=== PATIENT | female | born 1965 | race Caucasian/White ===

== ENCOUNTER 2017-02-04 11:19 | Emergency (ER) | payer MEDICARE, MEDICAID ==
[2017-02-04 11:38] VITALS: BP 118/77
--- NOTE | 2017-02-04 11:52 | EDM.PDOC ---
[id number] Complaint: [id number] THROWIN UP HEADACHE TICK BITE 1 MONTH A Time Seen by Provider: 02/04/17 11:40 Source of Information: Reports: Patient, Family, RN, RN Notes Reviewed History Limitations: Reports: No Limitations - History of Present Illness INITIAL COMMENTS - FREE TEXT/NARRATIVE: C/O tick bite to Rt low back 1 month ago. Yesterday had onset of fever w/N/V and diarrhea. Pt is concerned about Lyme disease. Onset Date: 02/03/17 Location: Reports: Abdomen, Back Quality: Reports: Other (cramping in generalized abdomen) Severity: Mild Improves with: Reports: None Worsens with: Reports: Eating Associated Symptoms: Reports: No Other Symptoms Knee Pain Score (Numeric/FACES): 7 - Related Data Allergies Allergy/AdvReac Type Severity Reaction Status Date / Time No Known Allergies Allergy Verified 02/04/17 11:33 Home Meds: Home Meds Acetaminophen/oxyCODONE [Percocet 325-5 MG] 1 tab PO Q4H 08/17/16 [History] Omeprazole 20 mg PO BIDAC 08/17/16 [History] Sertraline [Zoloft] 25 mg PO DAILY 08/17/16 [History] Varenicline Tartrate [Chantix] 1 each PO BID 08/17/16 [History] Past Medical History HEENT History: Reports: Impaired Vision Genitourinary History: Reports: Renal Calculus Other Musculoskeletal History: "needs knee surgery" Neurological History: Reports: Other (See Below) Other Neuro History: brain tumor Psychiatric History: Reports: Depression Endocrine/Metabolic History: Reports: Obesity/BMI 30+ - Past Surgical History HEENT Surgical History: Reports: Naso-Sinus Surgery Social & Family History - Family History Family Medical History: Noncontributory - Tobacco Use Smoking Status *Q: Current Every Day Smoker Years of Tobacco use: 30 Packs/Tins Daily: 1 Used Tobacco, but Quit: Yes Month Tobacco Last Used: jul 2016 Second Hand Smoke Exposure: Yes - Caffeine Use Caffeine Use: Reports: Coffee, Soda - Recreational Drug Use Recreational Drug Use: No - Living Situation & Occupation Living situation: Reports: with Family Occupation: Unemployed ED ROS GENERAL - Review of Systems Review Of Systems: ROS reveals no pertinent complaints other than HPI. ED EXAM, GI/ABD - Physical Exam Exam: See Below Exam Limited By: No Limitations General Appearance: Alert, WD/WN, No Apparent Distress, Obese Eyes: Bilateral: Normal Appearance Ears: Normal External Exam, Hearing Grossly Normal Nose: Normal Inspection, Normal Mucosa, No Blood Throat/Mouth: Normal Inspection, Normal Lips, Normal Teeth, Normal Gums, Normal Oropharynx, Normal Voice, No Airway Compromise Head: Atraumatic, Normocephalic Neck: Normal Inspection, Supple, Non-Tender, Full Range of Motion. No: Lymphadenopathy (L), Lymphadenopathy (R) Respiratory/Chest: No Respiratory Distress, Lungs Clear, Normal Breath Sounds, No Accessory Muscle Use, Chest Non-Tender Cardiovascular: Regular Rate, Rhythm, Tachycardia GI/Abdominal: Normal Bowel Sounds, Soft, No Distention, Tenderness (mild generalized tenderness). No: Guarding, Rebound, Rigidity (Female) Exam: Deferred Rectal (Female) Exam: Deferred Back Exam: Normal Inspection, Full Range of Motion. No: CVA Tenderness (L), CVA Tenderness (R) Extremities: Normal Inspection, Normal Range of Motion, Non-Tender, Normal Capillary Refill, No Pedal Edema Neurological: Alert, Oriented, CN II-XII Intact, Normal Cognition, Normal Gait, No Motor/Sensory Deficits Psychiatric: Normal Affect, Normal Mood Skin Exam: Warm, Dry, Intact, Rash (3cm diameter area of erythema with cental 3mm scab) Course - Vital Signs Last Recorded V/S: Last Vital Signs Temp 35.8 C 02/04/17 11:35 Pulse 100 02/04/17 11:35 Resp 20 02/04/17 11:35 BP 118/77 02/04/17 11:35 Pulse Ox 96 02/04/17 11:35 - Orders/Labs/Meds Orders: Active Orders 24 hr Category Date Time Status Peripheral IV Care [RC] . DIRECTED Care 02/04/17 11:53 Active LYME/B.BURGDORFERI IGG/IGM [REF] Stat Lab 02/04/17 12:08 Received Peripheral IV Insertion Adult [OM.PC] Stat Oth 02/04/17 11:52 Ordered Labs: Laboratory Tests 02/04/17 02/04/17 02/04/17 Range/Units 12:04 12:08 12:08 WBC 12.9 H (5.0-10.0) 10^3/uL RBC 5.83 H (4.2-5.4) 10^6/uL Hgb 16.4 H (12.0-16.0) g/dL Hct 49.5 H (37.0-47.0) % MCV 84.9 (80-100) fL MCH 28.1 (27.0-34.0) pg MCHC 33.1 (33.0-35.0) g/dL Plt Count 222 (150-450) 10^3/uL Neut % (Auto) 85.8 H (42.2-75.2) % Lymph % (Auto) 7.6 L (20.5-50.1) % [place] % (Auto) 6.4 (2-8) % Eos % (Auto) 0.2 L (1.0-3.0) % Baso % (Auto) 0.0 (0.0-1.0) % Sodium 137 (135-145) mmol/L Potassium 3.6 (3.6-5.0) mmol/L Chloride 105 (101-111) mmol/L Carbon Dioxide 19.0 L (21.0-31.0) mmol/L Anion Gap 16.6 BUN 24 H (7-18) mg/dL Creatinine 1.0 (0.6-1.3) mg/dL Est Cr Clr Drug Dosing 61.23 mL/min Estimated GFR (MDRD) 59 BUN/Creatinine Ratio 24.00 Glucose 127 H (74-105) mg/dL Calcium 8.8 (8.4-10.2) mg/dl Total Bilirubin 0.8 (0.2-1.0) mg/dL AST 16 (10-42) IU/L ALT 18 (10-60) IU/L Alkaline Phosphatase 56 (42-121) IU/L Total Protein 7.5 (6.7-8.2) g/dl Albumin 4.1 (3.2-5.5) g/dl Globulin 3.4 Albumin/Globulin Ratio 1.21 Amylase 35 (28-100) U/L Lipase 38 (22-51) U/L Urine Color Janae (YELLOW) Urine Appearance Slightly cloudy (CLEAR) Urine pH 6.0 (5.0-9.0) Ur Specific [place] 1.020 (1.005-1.030) Urine Protein 100 H (NEGATIVE) Urine Glucose (UA) Negative (NEGATIVE) Urine Ketones Negative (NEGATIVE) Urine Occult Blood Trace-intact H (NEGATIVE) Urine Nitrite Negative (NEGATIVE) Urine Bilirubin Small H (NEGATIVE) Urine Urobilinogen 0.2 (0.2-1.0) mg/dL Ur Leukocyte Esterase Small H (NEGATIVE) Urine RBC 5-10 H /HPF Urine WBC 20-30 H (0-5/HPF) /HPF Ur Epithelial Cells Moderate H /HPF Urine Bacteria Moderate H (0-FEW/HPF) /HPF Urine Mucus Few H /LPF Meds: Medications Discontinued Medications Generic Name Dose Route Start Last Admin Trade Name Freq PRN Reason Stop Dose Admin Sodium Chloride 1,000 mls @ 999 mls/hr 02/04/17 11:53 02/04/17 12:03 Normal Saline IV 02/04/17 12:53 999 mls/hr .BOLUS ONE Administration Ceftriaxone Sodium 1 gm/ 50 mls @ 100 mls/hr 02/04/17 13:31 02/04/17 13:39 Sodium Chloride IV 02/04/17 14:00 100 mls/hr ONETIME ONE Administration Ondansetron HCl 4 mg 02/04/17 11:53 02/04/17 12:03 Zofran IV 02/04/17 11:54 4 mg ONETIME ONE Administration Sodium Chloride 10 ml 02/04/17 11:53 02/04/17 12:04 Saline Flush FLUSH 10 ml ASDIRECTED PRN Administration Keep Vein Open Departure - Departure Time of Disposition: 13:32 Disposition: Home, Self-Care 01 Condition: Fair Clinical Impression: Gastroenteritis Tick bite of back Qualifiers: Encounter type: initial encounter Qualified Code(s): S30.860A - Insect bite ( nonvenomous) of lower back and pelvis, initial encounter - Discharge Information Instructions: Dehydration, Adult, [id number], Viral Gastroenteritis, Adult, [id number], Lyme Disease Forms: ED Department Discharge Additional Instructions: Rx: Phenergan 25mg *Do not drive while under the influence of this medication. Rx: Doxycycline 100mg Follow up in clinic in 5 days for recheck. - My Orders Last 24 Hours: My Active Orders 02/04/17 11:52 Peripheral IV Insertion Adult [OM.PC] Stat 02/04/17 11:53 Peripheral IV Care [RC] . DIRECTED 02/04/17 12:08 LYME/B.BURGDORFERI IGG/IGM [REF] Stat - Assessment/Plan Last 24 Hours: My Active Orders 02/04/17 11:52 Peripheral IV Insertion Adult [OM.PC] Stat 02/04/17 11:53 Peripheral IV Care [RC] . DIRECTED 02/04/17 12:08 LYME/B.BURGDORFERI IGG/IGM [REF] Stat
[2017-02-04] MEDS ORDERED: Sodium Chloride 0.9% 1,000 ML IV ONE (11:53)
[2017-02-04] MEDS ORDERED: Sodium Chloride 0.9% 10 ML Syringe FLUSH PRN (11:53)
[2017-02-04] MEDS ORDERED: Ondansetron 4 MG/2 ML SDV IV ONE (11:53)
[2017-02-04] MEDS ORDERED: cefTRIAXone 1 GM in Sodium Chloride 0.9% 50 ML IV ONE (13:31)
== END 2017-02-04 14:10 | disposition home or self-care (01) ==
LOC: DL.ED 11:19
DX: K52.9 Noninfective gastroenteritis and colitis, unspecified (principal); S30.860A Insect bite (nonvenomous) of lower back and pelvis, initial encounter; F32.9 Major depressive disorder, single episode, unspecified; F17.200 Nicotine dependence, unspecified, uncomplicated
CPT/HCPCS: 36415; 80053; 81001; 82150; 83690; 85025; 86618; 96361; 96365; 99284; J0696; J2405; J7030; J7050